=== PATIENT | female | born 1985 | race Caucasian/White ===

== ENCOUNTER 2017-01-01 02:02 | Emergency (ER) | payer OTHER ==
[~2017-01-01] VITALS: Ht 157.5 cm; Wt 42.5 kg
[~2017-01-01 02:02] MED LIST: DICY10CA60 PO; ONDA4TAB14 PO
[2017-01-01 02:05] VITALS: Ht 157.5 cm; Wt 42.5 kg
[2017-01-01] MEDS ORDERED: SODIUM CHLORIDE 0.9% 1L BAG IV* STA (02:26)
[2017-01-01] MEDS ORDERED: morphine 10 MG INJ IV ONE (02:30)
[2017-01-01] MEDS ORDERED: ONDANSETRON 4 MG INJ IV STA (02:30)
[2017-01-01 02:46] LABS: ADD SCAN DIFF NO
[2017-01-01 02:48] LABS: BASOPHILS % 0.2 % (0.0-2.0); EOSINOPHILS # 0.1 10^3/ul (0.0-0.5); EOSINOPHILS % 0.4 % (0.0-7.0); HEMATOCRIT 42.4 % (37.0-47.0); HEMOGLOBIN 14.5 g/dl (12.0-16.0); LYMPHOCYTES # 1.3 10^3/ul (0.8-2.9); LYMPHOCYTES % 8.8 % (15.0-51.0); MEAN CORPUSCULAR HEMOGLOBIN 32.1 pg (29.0-33.0); MEAN CORPUSCULAR HGB CONC 34.2 g/dl (32.0-37.0); MEAN CORPUSCULAR VOLUME 93.8 fl (82.0-101.0); MEAN PLATELET VOLUME 10.4 fl (7.4-10.4); MONOCYTES % 7.1 % (0.0-11.0); NEUTROPHIL # 11.9 10^3/ul (1.6-7.5); NEUTROPHILS % 83.1 % (39.0-77.0); PLATELET COUNT 278 10^3/UL (140-415); RED BLOOD COUNT 4.52 10^6/ul (4.20-5.40); WHITE BLOOD COUNT 14.3 10^3/ul (4.8-10.8)
[2017-01-01 02:53] LABS: ADD UMIC YES; URINE BILIRUBIN (Dip) NEGATIVE (NEGATIVE); URINE BLOOD (Dip) NEGATIVE (NEGATIVE); URINE COLOR YELLOW (YELLOW); URINE GLUCOSE (Dip) NEGATIVE (NEGATIVE); URINE KETONES (Dip) 15 (NEGATIVE); URINE LEUKOCYTE ESTERASE (Dip) TRACE (NEGATIVE); URINE NITRITE (Dip) NEGATIVE (NEGATIVE); URINE TOTAL PROTEIN (Dip) 1+ (NEGATIVE); URINE UROBILINOGEN (Dip) 0.2 E.U./dL (0.1-1.0)
[2017-01-01 03:04] LABS: INR 0.95; PARTIAL THROMBOPLASTIN TIME 26.1 Sec (25.0-35.0); PROTIME 12.7 Sec (12.2-14.2)
[2017-01-01 03:09] LABS: CHLORIDE 105 mmol/L (97-110)
[2017-01-01 03:10] LABS: POTASSIUM 4.3 mmol/L (3.5-5.1); SODIUM 143 mmol/L (135-144)
[2017-01-01 03:12] LABS: CARBON DIOXIDE 23 mmol/L (21-31); CREATININE 0.75 mg/dl (0.44-1.00)
[2017-01-01 03:13] LABS: ALANINE AMINOTRANSFERASE 31 IU/L (13-69); ALBUMIN/GLOBULIN RATIO 1.42; ALKALINE PHOSPHATASE 123 IU/L (42-121); ANION GAP 19 (8-16); ASPARTATE AMINO TRANSFERASE 27 IU/L (15-46); BILIRUBIN,INDIRECT 0.5 mg/dl (0-1.1); BILIRUBIN,TOTAL 0.5 mg/dl (0.2-1.3); BLOOD UREA NITROGEN 13 mg/dl (7-20); CALCIUM 10.3 mg/dl (8.4-10.2); GLUCOSE 157 mg/dl (70-220); TOTAL PROTEIN 8.5 g/dl (6.1-8.1)
[2017-01-01 03:14] LABS: SQUAMOUS EPITHELIAL CELL,UR MANY; URINE RBCS 0-2 /HPF (0)
[2017-01-01 03:15] LABS: BACTERIA,URINE MANY
[2017-01-01 03:24] LABS: TROPONIN-I < 0.012 ng/ml (0.00-0.12)
--- NOTE | 2017-01-01 03:39 | RADRPT ---
PROCEDURE: XR Chest. CLINICAL INDICATION: Sepsis TECHNIQUE: Portable single view of the chest COMPARISON: 03/23/2015 FINDINGS: External pacer the overlie the chest. The cardiomediastinal silhouette appears within normal limits . No focal infiltrate, pleural effusion, or pneumothorax is seen. No bony abnormality is seen. IMPRESSION: No definite acute pulmonary disease. RPTAT: [facility] Davina Teixeira Physician Date Time Electronically viewed and signed by Davina Teixeira, Physician on 01/01/2017 03:39 LE/
[2017-01-01] MEDS ORDERED: CEFTRIAXONE 1 GM/50 ML (PMX) 50 ML IVPB ONE (05:00)
[2017-01-01 05:01] LABS: ADD UMIC NO; URINE BILIRUBIN (Dip) NEGATIVE (NEGATIVE); URINE BLOOD (Dip) NEGATIVE (NEGATIVE); URINE COLOR LT. YELLOW (YELLOW); URINE GLUCOSE (Dip) NEGATIVE (NEGATIVE); URINE KETONES (Dip) NEGATIVE (NEGATIVE); URINE LEUKOCYTE ESTERASE (Dip) NEGATIVE (NEGATIVE); URINE NITRITE (Dip) NEGATIVE (NEGATIVE); URINE TOTAL PROTEIN (Dip) NEGATIVE (NEGATIVE); URINE UROBILINOGEN (Dip) 0.2 E.U./dL (0.1-1.0)
--- NOTE | 2017-01-01 06:48 | RADRPT ---
PROCEDURE: CT Abdomen and pelvis without contrast. CLINICAL INDICATION: Abdominal pain. TECHNIQUE: CT scan of the abdomen and pelvis was performed on a multi-detector high-resolution CT scanner. Contiguous axial images were obtained from the lung bases to the ischial tuberosities wit hout intravenous contrast. Coronal and sagittal reformatted images were also obtained. Images were reviewed on the PACS workstation. One or more of the following dose reduction techniques were used: - Automated exposure control. - Adjustment of the mA and/or kV according to patient size. - Use of iterative reconstruction technique. Exam CTD/vol = 4.06 mGy. Total exam DLP = 200.53 mGy-cm. COMPARISON: 04/19/2015. FINDINGS: Evaluation of the lung bases demonstrates no pleural or parenchymal disease. Abdomen: The liver is normal in size. There is no focal mass or dilatation of the biliary tree. T he patient is status post cholecystectomy. The spleen, pancreas and bilateral adrenal glands are wi thin normal limits. Bilateral kidneys are normal in size with no contour deforming mass identified. There is no radiopaque renal or ureteral calculus identified. There is no hydronephrosis or hydro ureter. There is no retroperitoneal adenopathy. The abdominal aorta is of normal caliber. There is no abnormal bowel wall thickening or distension. There is no bowel obstruction or free air . A normal appendix is partially visualized. There is no diverticulosis or diverticulitis. There is no ascites. Pelvis: The bladder is unremarkable. The uterus and adnexa are within normal limits. There is no significant pelvic adenopathy or free fluid. Evaluation of the osseous structures demonstrates no suspicious lytic or blastic lesion. IMPRESSION: No acute abnormality identified within the abdomen and pelvis. Status post cholecystectomy. .Dusty Burns MD, MD Date Time Electronically viewed and signed by .Dusty Burns MD, MD on 01/01/2017 06:47 .T/
[2017-01-01] MEDS ORDERED: OMEP40CA6 PO (07:10)
[2017-01-01] MEDS ORDERED: HYDR-906 PO (07:10)
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
[2017-01-01 07:33] VITALS: BP 124/89; PULSE 89; RESP 18; TEMP 98.5
== END 2017-01-01 07:34 | disposition home or self-care (01) ==
LOC: E/R 02:02
DX: R10.12 Left upper quadrant pain (principal); R40.2252 Coma scale, best verbal response, oriented, at arrival to emergency department; R10.2 Pelvic and perineal pain; R40.2142 Coma scale, eyes open, spontaneous, at arrival to emergency department; R40.2362 Coma scale, best motor response, obeys commands, at arrival to emergency department
CPT/HCPCS: 71010; 74176; 80053; 81001; 83605; 83690; 84484; 85025; 85610; 85730; 87040; 87086; 93005; J0696; J2270; J2405; J7030; 36415; 81003; 96374; 96375

== ENCOUNTER 2017-07-26 03:06 | Emergency (ER) | payer MEDICAID, OTHER ==
[~2017-07-26] VITALS: Ht 157.5 cm; Wt 50.0 kg
[~2017-07-26 03:06] MED LIST changes: +HYDR-906 PO; +OMEP40CA6 PO
[2017-07-26 03:15] VITALS: Ht 157.5 cm; Wt 50.0 kg
[2017-07-26] MEDS ORDERED: ONDANSETRON 4 MG INJ IV STA (03:31)
[2017-07-26] MEDS ORDERED: FAMOTIDINE 20 MG INJ IV STA (03:31)
[2017-07-26] MEDS ORDERED: LIDOCAINE/MYLANTA 40 ML BTL PO STA (03:31)
[2017-07-26] MEDS ORDERED: METOCLOPRAMIDE 10 MG INJ IV STA (03:31)
[2017-07-26] MEDS ORDERED: SOD CHLORIDE 0.9% 1,000 ML IV STA (03:31)
[2017-07-26 03:44] LABS: BASOPHILS % 0.2 % (0.0-2.0); HEMATOCRIT 41.9 % (37.0-47.0); LYMPHOCYTES # 2.2 10^3/ul (0.8-2.9); MEAN CORPUSCULAR HGB CONC 35.8 g/dl (32.0-37.0); MEAN CORPUSCULAR VOLUME 92.1 fl (82.0-101.0); MEAN PLATELET VOLUME 10.4 fl (7.4-10.4); MONOCYTE # 0.8 10^3/ul (0.3-0.9); MONOCYTES % 5.3 % (0.0-11.0); NEUTROPHIL # 12.7 10^3/ul (1.6-7.5); PLATELET COUNT 276 10^3/UL (140-415); RED BLOOD COUNT 4.55 10^6/ul (4.20-5.40); RED CELL DISTRIBUTION WIDTH 13.3 % (11.5-14.5); WHITE BLOOD COUNT 15.9 10^3/ul (4.8-10.8)
[2017-07-26] MEDS ORDERED: LORAZEPAM 2 MG INJ IV ONE (04:00)
[2017-07-26] MEDS ORDERED: FENTAnyl 50 MCG/ML VIAL IV ONE (04:00)
[2017-07-26 04:07] LABS: ALBUMIN 4.8 g/dl (3.3-4.9); ALBUMIN/GLOBULIN RATIO 1.37; BILIRUBIN,INDIRECT 0.7 mg/dl (0-1.1); BILIRUBIN,TOTAL 0.7 mg/dl (0.2-1.3); CALCIUM 9.8 mg/dl (8.4-10.2); CREATININE 0.91 mg/dl (0.44-1.00); POTASSIUM 4.2 mmol/L (3.5-5.1); TOTAL PROTEIN 8.3 g/dl (6.1-8.1)
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
[2017-07-26] MEDS ORDERED: ONDA4TAB14 PO (05:36)
[2017-07-26] MEDS ORDERED: OMEP40CA6 PO (05:36)
[2017-07-26] MEDS ORDERED: HYDR-906 PO (05:36)
[2017-07-26] MEDS ORDERED: DICY10CA60 PO (05:36)
[2017-07-26 05:48] VITALS: BP 113/73; PULSE 79; RESP 18
== END 2017-07-26 05:48 | disposition home or self-care (01) ==
LOC: E/R 03:06
DX: R10.13 Epigastric pain (principal); F17.210 Nicotine dependence, cigarettes, uncomplicated
CPT/HCPCS: 36415; 80053; 83690; 84703; 85025; 96374; 96375; J2060; J2405; J2765; J3010; J7030; Z7502; Z7610